=== PATIENT | female | born 1985 | race Caucasian/White ===

== ENCOUNTER 2016-11-20 06:09 | Day surgery (SDC) | payer OTHER ==
[~2016-11-20] VITALS: Ht 172.7 cm; Wt 65.3 kg
[2016-11-20] VITALS (9 sets, daily range): BP systolic 94–109; BP diastolic 57–70
[2016-11-20] MEDS ORDERED: Lidocaine 1% MPF 10mg/ml 5ml ONE (06:10)
[2016-11-20] MEDS ORDERED: LR 1000ml ONE (06:10)
[2016-11-20] MEDS ORDERED: Propofol 10mg/ml 20ml IV ONE (06:10)
--- NOTE | 2016-11-20 06:27 | Anethesia Preoperative Eval ---
Anesthesia Pre-op PMH/ROS General Date of Evaluation: November 20, 2016 Time of Evaluation: 06:25 Anesthesiologist: aldair ASA Score: ASA 2 Mallampati Score Class I : Soft palate, uvula, fauces, pillars visible Class II: Soft palate, uvula, fauces visible Class III: Soft palate, base of uvula visible Class IV: Only hard plate visible Mallampati Classification: Class II Surgeon: florencio Surgical Procedure: EGDdiagnostic/colonoscopy Anesthesia History: none Social History: smoking - no Family History: no anesthesia problems Allergies: Coded Allergies: Spironolactone (Verified Allergy, Mild, rash, 11/20/16) Medications: see eMAR Past Medical History Gastrointestinal/Genitourinary: Reports: other - proctitis Anesthesia Pre-op A/P Risk Assessment & Plan Plan: EGD diagnostic/colonoscopy Status Change Before Surgery: No JIMBO MONTAÑO November 20, 2016 06:27
[2016-11-20] MEDS ORDERED: LR 1000ml 1,000 ML IV SCH (06:30)
[2016-11-20] MEDS ORDERED: APRISO0.375 GM PO (06:54)
--- NOTE | 2016-11-20 07:06 | Short Stay Surgery H&P ---
History of Present Illness History of Present Illness Chief Complaint see typed H&P HPI Jacy Luque is a 31 year old female who was admitted on for Abdominal Pain Patient History Allergies: Coded Allergies: SPIRONOLACTONE (Verified Allergy, Mild, rash, 11/20/16) PAST MEDICAL HISTORY: Past Surgeries: Social History: Medication History Scheduled Mesalamine (Apriso), 0.375 GM PO DAILY, (Reported) Physical Exam Vital Signs Last Vital Signs Date Time Temp Pulse Resp B/P Pulse Ox O2 Delivery O2 Flow Rate FiO2 11/20/16 06:58 98.3 52 18 109/70 99 Room Air Labs Laboratory Tests Test 11/20/16 06:30 Urine HCG, Qualitative Negative Plan Attestation Are the patient's medical conditions optimized for surgery? ROCK CONSTANTINO November 20, 2016 07:06
--- NOTE | 2016-11-20 07:06 | Pre-Procedure Note/Attestation ---
Pre-Procedure Note/Attestation Complete Prior to Procedure Planned Procedure: not applicable Procedure Narrative: EGD/Colon Indications for Procedure Pre-Operative Diagnosis: hematochezia Attestation I attest that I discussed the nature of the procedure; its benefits; risks and complications; and alternatives (and the risks and benefits of such alternatives ), prior to the procedure, with the patient (or the patient's legal home furnishings sales representative). I attest that, if there was a reasonable possibility of needing a blood transfusion, the patient (or the patient's legal home furnishings sales representative) was given the [facility] standardized written summary, pursuant to the [place] Blood Safety Act ([place] Health and Safety Code # 1645, as amended). I attest that I re-evaluated the patient just prior to the surgery and that there has been no change in the patient's H&P, except as documented below: ROCK CONSTANTINO November 20, 2016 07:06
--- NOTE | 2016-11-20 07:28 | Immediate Post-Op Evaluation ---
Immediate Post-Op Evalulation Immediate Post-Op Evalulation Procedure: egd diagnostic/colonoscopy Date of Evaluation: November 20, 2016 Time of Evaluation: 07:56 IV Fluids: lr 700ml Blood Products: na Estimated Blood Loss: na Urinary Output: na Blood Pressure Systolic: 94 Blood Pressure Diastolic: 60 Pulse Rate: 51 Respiratory Rate: 16 O2 Sat by Pulse Oximetry: 100 Temperature (Fahrenheit): 97.4 Pain Score (1-10): 0 Nausea: No Vomiting: No Complications none Patient Status: awake, reacts, patent Hydration Status: adequate Drug: none JIMBO MONTAÑO November 20, 2016 07:28
--- NOTE | 2016-11-20 12:10 | 48 Hour Post Anesthesia Eval ---
Post Anesthesia Evaluation Procedure: egd diagnostic/colonoscopy Date of Evaluation: November 20, 2016 Time of Evaluation: 08:05 Blood Pressure Systolic: 94 0: 58 Pulse Rate: 48 Respiratory Rate: 13 Temperature (Fahrenheit): 97.0 O2 Sat by Pulse Oximetry: 100 Airway: patent Nausea: No Vomiting: No Pain Intensity: 0 Cardiopulmonary Status: stable Mental Status/LOC: patient returned to baseline Post-Anesthesia Complications: none Follow-up care needed: patient intructions given JIMBO MONTAÑO November 20, 2016 12:10
--- NOTE | 2016-11-20 23:21 | Operative Note - Dictated ---
GASTROENTEROLOGY PROCEDURE REPORT: DATE OF PROCEDURE: 11/20/2016 PROCEDURE: Upper gastrointestinal endoscopy with biopsy as well as colonoscopy with biopsy. PRE-ENDOSCOPIC DIAGNOSES: 1. Abdominal pain. 2. Hematochezia. 3. History of proctitis. POST-ENDOSCOPIC DIAGNOSES: 1. Normal upper endoscopy status post random biopsy of the stomach. 2. Normal terminal ileum. 3. Normal colonic mucosa except for appears to have some rectum which showed circumferential erythema friability and erosions and shallow ulcerations consistent with distal proctitis status post biopsy. 4. Status post random biopsy of the right and left colon. PROCEDURE: The procedure, its risks, indications, alternatives, and possible complications were explained to the patient and informed consent was obtained. The endoscope was introduced through the oropharynx and advanced to the duodenum. The endoscope was then gradually withdrawn and the mucosa examined carefully. The rectal exam was done. The colonoscope was introduced into the rectum and advanced to the terminal ileum. The colonoscope was then gradually withdrawn and the mucosa examined carefully. Examination of upper gastrointestinal mucosa revealed above findings. Biopsies were sent to pathology for review. The patient was left to recovery in good condition. COMPLICATIONS: None. ASSESSMENT: This patient's examination was notable for the distal half of rectum having proctitis. Biopsy will be evaluated to rule out any microscopic evidence of colitis. The treatment options will be discussed with the patient to follow. RECOMMENDATIONS: 1. Resume oral diet. 2. Follow up biopsy results. 3. Outpatient followup regarding treatment and options. Fabienne Boss M.D. DR: Alexa JOB#: [id number] CC: DENZEL
--- NOTE | 2016-11-20 23:51 | Operative Note - Dictated ---
DATE OF OPERATION: 11/20/2016 NOTE: CANCELED DICTATION GASTROENTEROLOGY PROCEDURE PROCEDURE: Upper gastrointestinal endoscopy with biopsy as well as colonoscopy with biopsy. SURGEON: Fabienne Boss M.D. ANESTHESIA: Please see the separate anesthesiologist notes for details. PRE-ENDOSCOPIC DIAGNOSES: 1. Hematochezia. 2. History of . 3. Right lower quadrant abdominal pain. POST-ENDOSCOPIC DIAGNOSES: 1. Normal upper endoscopy status post random biopsies of the antrum. 2. Normal terminal ileum as well as normal upper colonic mucosa throughout the colon. Fabienne Boss M.D. DR: CHINO JOB#: [id number] CC:
== END 2016-11-20 09:15 | disposition home or self-care (01) ==
LOC: GAS 06:09
DX: K62.89 Other specified diseases of anus and rectum (principal); K29.50 Unspecified chronic gastritis without bleeding; E28.2 Polycystic ovarian syndrome; Z87.891 Personal history of nicotine dependence; Z88.8 Allergy status to other drugs, medicaments and biological substances
CPT/HCPCS: 81025; 94003; 94150